=== PATIENT | male | born 1990 | race African-American/Black ===

== ENCOUNTER 2022-02-01 20:06 | Emergency (ER) | payer BC, OTHER ==
[2022-02-01] MEDS ORDERED: CYCLOBENZAPRINE 10 MG TAB ONE (20:44)
[2022-02-01] MEDS ORDERED: IBUPROFEN 400 MG TAB ONE (20:45)
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
[2022-02-02 14:21] VITALS: BP 150/80; TEMP 98.1; O2SAT 100
== END 2022-02-01 22:06 | disposition home or self-care (01) ==
LOC: ER 20:06
DX: R29.91 Unspecified symptoms and signs involving the musculoskeletal system (principal); M54.50 Low back pain, unspecified
CPT/HCPCS: 72100; 99284